=== PATIENT | male | born 1980 | race Caucasian/White ===

== ENCOUNTER 2025-08-22 09:15 | Day surgery (SDC) | payer BC ==
[2025-08-22] VITALS (8 sets, daily range): BP systolic 89–115; BP diastolic 49–81; PULSE 40–65; RESP 10–16; TEMP 97.5; O2SAT 95–99
[~2025-08-22] VITALS: Ht 167.6 cm; Wt 80.1 kg
[~2025-08-22 09:15] MED LIST: NO HOME MEDS; iohexol 300mg/ml 100ml inj. ONE; simethicone 40mg/0.6ml oral drops 15ml PO ONE
[2025-08-22] MEDS: ringers solution, lacted 1,000 ML IV SCH (09:48)
[2025-08-22] MEDS ORDERED: midazolam 1 mg/ML 2ml injection ONE (10:28)
[2025-08-22] MEDS ORDERED: fentaNYL/PF 50MCG/1 ML 2ML syringe ONE (10:28)
[2025-08-22] MEDS ORDERED: propofol inj 20 ML IV ONE (10:30)
--- NOTE | 2025-08-22 12:15 | ELECTROCARDIOGRAPH REPORT ---
[facility] Test Date: 2025-08-22 Test Time: 09:45:11 Pat Name: ADDIS KNOX Department: PRE/OP CARDIOLOGY Room: Gender: M Medical Records Custodian: ALBINA : 1980 Requested By: ALDAIR ARREGUIN Order Number: [id number] Reading MD: Dr. LEIDA Jerez Measurements Intervals [place] Rate: 61 P: 19 ID: [id number] QRS: 68 QRSD: 85 T: 54 QT: 418 QTc: 421 Interpretive Statements Sinus rhythm Electronically Signed On 08-22-2025 16:53:[address] LEIDA Jerez Please click the below link to view image of tracing.
== END 2025-08-22 11:57 | disposition home or self-care (01) ==
LOC: PAS 09:15
PROVIDERS: ATTEND Internal Medicine Gastroenterology
DX: R19.5 Other fecal abnormalities (principal); D12.2 Benign neoplasm of ascending colon; D12.0 Benign neoplasm of cecum; K63.5 Polyp of colon; K57.30 Diverticulosis of large intestine without perforation or abscess without bleeding; Z79.899 Other long term (current) drug therapy; Z98.52 Vasectomy status; Z98.890 Other specified postprocedural states
CPT/HCPCS: 45385; 82948; 93005; J2250; J2704; J3010; J7120; Q9967; Z7512; A4615; A4620